=== PATIENT | female | born 1970 | race Caucasian/White ===

== ENCOUNTER 2017-07-23 01:00 | Observation (INO) | payer MEDICAID ==
[~2017-07-23] VITALS: Ht 162.6 cm; Wt 75.0 kg
[2017-07-23 02:03] VITALS: BP 167/100; Ht 162.6 cm; Wt 75.0 kg
[2017-07-23 04:00] VITALS: BP 143/74
[2017-07-23 07:51] LABS: BASOPHILS 0.8 % (0-2); EOSINOPHILS 7.2 % (0-7); HEMATOCRIT 41.3 % (36.0-48.0); HEMOGLOBIN 13.8 g/dL (12-16); IMMATURE GRANULOCYTES 0.2 % (0-5); LYMPHOCYTES 27.4 % (15-50); MCH 30.6 pg (26.0-34.0); MCHC 33.4 g/dL (31.0-37.0); MCV 91.6 fL (80.0-100.0); MEAN PLATELET VOLUME 11.6 fL (7.4-10.4); NEUTROPHILS 54.4 % (40-80); PLATELET COUNT 191 10x3/uL (130-400); RBC 4.51 10x6/uL (4.00-5.40); RDW 13.4 % (11.5-14.5)
[2017-07-23 08:15] VITALS: BP 167/87
[2017-07-23 08:28] LABS: ALBUMIN 3.2 g/dL (3.4-5.0); ALKALINE PHOSPHATASE 89 U/L (46-116); ALT (SGPT) 22 U/L (10-68); AMYLASE - SERUM 47 U/L (25-115); BILIRUBIN - TOTAL 0.43 mg/dL (0.2-1.3); CALC OSMOLALITY 280 mosm/kg (275-300); CALCIUM 8.4 mg/dL (8.5-10.1); CARBON DIOXIDE 26.6 mmol/L (21.0-32.0); CHLORIDE - SERUM 108 mmol/L (98-107); CREATININE - SERUM 0.7 mg/dL (0.6-1.3); GLUCOSE 92 mg/dL (74-106); LIPASE 83 U/L (73-393); PROTEIN - SERUM 6.3 g/dL (6.4-8.2); SODIUM 140 mmol/L (136-145); UREA NITROGEN 19 mg/dL (7-18); eGFR NON AFRICAN AMERICAN > 90 mL/min (90-120)
[2017-07-23 13:04] VITALS: BP 140/90
[2017-07-23 15:58] VITALS: BP 158/94
[2017-07-23] MEDS ORDERED: PROTONIX40 MG PO (18:57)
== END 2017-07-23 20:32 | disposition home or self-care (01) ==
LOC: D.OPS 01:00 → OBSVTIME 01:01 → D.MS 01:01
PROVIDERS: Internal Medicine Gastroenterology; ADMIT Emergency Medicine
DX: K92.0 Hematemesis (principal); R11.0 Nausea; R12 Heartburn; K44.9 Diaphragmatic hernia without obstruction or gangrene; K22.10 Ulcer of esophagus without bleeding; K21.0 Gastro-esophageal reflux disease with esophagitis; K29.70 Gastritis, unspecified, without bleeding

== ENCOUNTER 2017-10-12 13:20 | Emergency (ER) | payer MEDICAID ==
[2017-07-23 02:03] VITALS: BMI 28.4
[~2017-10-12 13:20] MED LIST: PROTONIX40 MG PO
[2017-10-12 14:22] LABS: APPEARANCE HAZY (CLEAR); BACTERIA MODERATE /hpf (NONE SEEN); BILIRUBIN NEGATIVE (NEGATIVE); COLOR YELLOW (YELLOW); EPITHELIAL CELLS 0-5 /hpf (0-5); GLUCOSE NEGATIVE (NEGATIVE); KETONE NEGATIVE (NEGATIVE); MUCUS <1+ /lpf (NONE SEEN); NITRITE NEGATIVE (NEGATIVE); PROTEIN NEGATIVE (NEGATIVE); RED CELLS - URINE OCC /hpf (0-5); SPECIFIC GRAVITY 1.015 (1.005-1.020); UROBILINOGEN NORMAL (NORMAL)
[2017-10-12 14:29] LABS: BASOPHILS 0.3 % (0-2); EOSINOPHILS 2.5 % (0-7); HEMATOCRIT 43.3 % (36.0-48.0); HEMOGLOBIN 14.7 g/dL (12-16); IMMATURE GRANULOCYTES 0.2 % (0-5); LYMPHOCYTES 28.4 % (15-50); MCH 30.1 pg (26.0-34.0); MCHC 33.9 g/dL (31.0-37.0); MCV 88.7 fL (80.0-100.0); MEAN PLATELET VOLUME 12.3 fL (7.4-10.4); NEUTROPHILS 60.6 % (40-80); PLATELET COUNT 181 10x3/uL (130-400); RBC 4.88 10x6/uL (4.00-5.40); RDW 12.3 % (11.5-14.5)
[2017-10-12 14:44] LABS: ANION GAP 11.8 mmol/L (8-16); BILIRUBIN - TOTAL 0.23 mg/dL (0.2-1.3); CALCIUM 9.2 mg/dL (8.5-10.1); CARBON DIOXIDE 25.9 mmol/L (21.0-32.0); CREATININE - SERUM 0.9 mg/dL (0.6-1.3); POTASSIUM - SERUM 3.7 mmol/L (3.5-5.1); PROTEIN - SERUM 7.4 g/dL (6.4-8.2)
== END 2017-10-12 15:20 | disposition home or self-care (01) ==
LOC: D.ER 13:20
PROVIDERS: Nurse Practitioner Family
DX: K29.00 Acute gastritis without bleeding (principal); K59.00 Constipation, unspecified; F17.200 Nicotine dependence, unspecified, uncomplicated; J45.909 Unspecified asthma, uncomplicated